=== PATIENT | female | born 1950 | race Caucasian/White ===

== ENCOUNTER → 2019-05-29 | Outpatient (CLI) | payer MEDICARE, OTHER ==
[~2019-05-29] MED LIST: AMBIEN10 MG PO; ASPI325T6 PO; ASPIRIN E.C. 8181 MG PO; CARVEDILOL; CLARITIN 1010 MG/TAB PO; COREG25 MG PO; CYMBALTA 20MG20 MG PO; DULCOLAX S10 MG/SUPP RC; GLUCOPHAGE1000 MG PO; GOOD NEIGH1200 MG/15 PO; JANUVIA 100MG100 MG PO; JANUVIA25 MG PO; LANTUS100 U/ML SQ; LISINOPRIL10 MG PO; MELAT3MGTAB PO; NIASPAN500 MG PO; NIASPAN750 MG PO; NOVOLOG 100U100 U/M1; SENOKOT S 50 MG1 TAB PO; SIMVASTATIN10 MG PO; SYNTHROID0.088 MG/T PO; TYLENOL 325MG325 MG PO; ULTRAM 50MG TAB50 MG PO; ZOCOR 40MG40 MG PO
[2019-05-29 20:38] LABS: BASO % 0.7 % (0.0-2.0); EOS # 0.3 (0.0-0.7); EOS % 4.8 % (0-4.0); GRAN # 3.5 (1.4-6.5); GRAN % 64.1 % (42.2-75.2); HEMOGLOBIN 10.9 g/dl (12.5-16.0); LYMPH # 1.3 (1.2-3.4); LYMPH % 24.6 % (20.0-51.0); MEAN CELL VOLUME 84 fl (80.0-100.0); MEAN CORPUSCULAR HEMOGLOBIN 26 pg (27.0-31.0); MEAN CORPUSCULAR HGB CONC 31 g/dl (33.0-37.0); MEAN PLATELET VOLUME 14.9 fl (7.4-10.4); MONO # 0.3 (0.1-0.6); MONO % 5.4 % (1.7-9.3); PLATELET COUNT 164 K/mm3 (130-400); RED BLOOD COUNT 4.18 M/mm3 (4.10-5.30); REDCELL DISTRIBUTION WIDTH-CV 14.9 % (11.5-14.5)
[2019-05-29 20:47] LABS: HEMATOCRIT 35.2 % (37.0-47.0)
[2019-05-29 21:10] LABS: ERYTHROCYTE SEDIMENTATION RATE 14 mm/hr (0-30)
[2019-05-29 21:44] LABS: IRON,SERUM 48 ug/dL (35-150)
[2019-05-29 21:53] LABS: TOTAL IRON BINDING CAPACITY 358 ug/dL (265-497)
== END ==
LOC: ZCOL.LAB 17:49
PROVIDERS: Internal Medicine
DX: D63.8 Anemia in other chronic diseases classified elsewhere (principal); E11.59 Type 2 diabetes mellitus with other circulatory complications

== ENCOUNTER 2021-11-21 16:04 | Emergency (ER) | payer MEDICARE, OTHER ==
[~2021-11-21] VITALS: Ht 167.6 cm; Wt 90.9 kg
[2021-11-21 16:08] VITALS: TEMP 98
[2021-11-21 17:39] VITALS: BP 153/71; PULSE 68
== END 2021-11-21 17:39 | disposition home or self-care (01) ==
LOC: COL.ER 16:04
DX: S09.90XA Unspecified injury of head, initial encounter (principal); S01.01XA Laceration without foreign body of scalp, initial encounter; I48.91 Unspecified atrial fibrillation; Z87.891 Personal history of nicotine dependence; Z79.01 Long term (current) use of anticoagulants; W18.30XA Fall on same level, unspecified, initial encounter

== ENCOUNTER 2021-12-07 10:25 | Emergency (ER) | payer MEDICARE, OTHER ==
[~2021-12-07] VITALS: Ht 167.6 cm; Wt 77.3 kg
[2021-12-07 10:32] VITALS: TEMP 96.7
[2021-12-07 12:08] VITALS: BP 117/80; PULSE 88
== END 2021-12-07 12:16 | disposition home or self-care (01) ==
LOC: COL.ER 10:25
DX: S01.00XA Unspecified open wound of scalp, initial encounter (principal); I48.91 Unspecified atrial fibrillation; Z79.01 Long term (current) use of anticoagulants; W18.30XA Fall on same level, unspecified, initial encounter

== ENCOUNTER 2022-12-28 09:33 | Outpatient (RCR) | payer MEDICARE, OTHER ==
[~2022-12-28] VITALS: Ht 167.6 cm; Wt 87.7 kg
[2022-12-28] VITALS (10 sets, daily range): BP systolic 111–145; BP diastolic 64–97; PULSE 65–79; TEMP 96.9–97.6
[~2022-12-28 09:33] MED LIST changes: +COREG 25MG25 MG/TAB PO; -COREG25 MG PO; -LISINOPRIL10 MG PO; +SYNTHROID0.075 MG/T PO; -SYNTHROID0.088 MG/T PO; +ZESTRIL 20MG TA20 MG PO
[2022-12-28] MEDS ORDERED: ELIQUIS 5MG PO (12:22)
[2022-12-28] MEDS ORDERED: NOVOLOG FLEX100 U/ML SQ (12:24)
[2022-12-28] MEDS ORDERED: PROAIR HFA0.09 MG/AC IH (12:25)
--- NOTE | 2022-12-28 14:00 | NUR ---
When staff entered room pt was found to have pulled out IV. First unit of PRBC nearly complete, with bag empty and remaining amount nearly out of blood filter tubing. Pressure applied at IV site, and was cleaned and wrapped with coban. Pt's hands also cleaned, and new blanket provided. New IV started to RAC, site covered with pt's sleeve and arm resting under blanket. Pt's has now returned to room and will help to monitor pt. Bed alarm has been engaged. Pt was assisted up to restroom x2 during transfusion of first unit. She is now resting comfortably in bed.
--- NOTE | 2022-12-28 16:11 | NUR ---
Pt assisted out to 's car by wheelchair. IV was DC'd, site wrapped with coban. Pt tolerated transfusion without issue. Respirations remain even and unlabored, and pt free of complaints at time of discharge.
== END 2022-12-28 16:13 | disposition home or self-care (01) ==
LOC: EUO 09:33
DX: D64.9 Anemia, unspecified (principal)
CPT/HCPCS: J7050; P9016